=== PATIENT | female | born 1985 | race Hispanic/Latino ===

== ENCOUNTER 2018-09-26 21:48 | Emergency (ER) | payer OTHER ==
[~2018-09-26 21:48] MED LIST: DOCU-272 PO; PNV1TABL17 PO
[2018-09-26 22:20] LABS: BASOPHILS % (AUTO) 1.1 % (0.0-5.0); HEMATOCRIT 33.9 % (36-48); LYMPHOCYTES % (AUTO) 46.5 % (21.0-51.0); MEAN CORPUSCULAR HEMOGLOBIN 29.5 pg (27.0-33.0); MEAN CORPUSCULAR HGB CONC 33.5 g/dL (32.0-36.0); MEAN CORPUSCULAR VOLUME 88.1 fL (79-99); MONOCYTES % (AUTO) 6.6 % (3.0-13.0); NEUTROPHILS % (AUTO) 44.8 % (40.0-77.0); PLATELET COUNT (AUTO) 261 K/uL (130-400); RED BLOOD CELL COUNT(AUTO) 3.85 MIL/uL (4.00-5.50); RED CELL DISTRIBUTION WIDTH 13.4 % (11.0-15.5); WHITE BLOOD COUNT (AUTO) 7.9 K/uL (4.8-10.8)
[2018-09-26 22:23] LABS: APPEARANCE,URINE Clear (CLEAR); BILIRUBIN,URINE Negative (NEGATIVE); COLOR,URINE Yellow (YELLOW); GLUCOSE, URINE (UA) Negative (NEGATIVE); KETONES,URINE Negative (NEGATIVE); LEUKOCYTE ESTERASE ,URINE Small (NEGATIVE); NITRATE,URINE Negative (NEGATIVE); OCCULT BLOOD,URINE Large (NEGATIVE); PH,URINE 6.5 (5.0-8.0); PROTEIN,URINE Negative (NEGATIVE)
[2018-09-26 22:28] LABS: BACTERIA,URINE Few /HPF (None Seen); MUCUS,URINE Rare LPF (None Seen); SQUAMOUS EPITHELIAL CELL,UR Few /HPF (0-2)
[2018-09-26 22:48] LABS: POTASSIUM 3.9 mmol/L (3.5-5.1)
== END 2018-09-26 23:58 | disposition home or self-care (01) ==
LOC: EDH 21:48
DX: O72.1 Other immediate postpartum hemorrhage (principal); Z88.6 Allergy status to analgesic agent; Z88.8 Allergy status to other drugs, medicaments and biological substances; Z98.890 Other specified postprocedural states
CPT/HCPCS: 36415; 76856; 80048; 81001; 82948; 85025

== ENCOUNTER → 2020-03-05 | Outpatient (CLI) | payer OTHER | END | disposition home or self-care (01) | LOC: LAB 12:25 | PROVIDERS: ATTEND Internal Medicine Cardiovascular Disease | DX: U07.1 COVID-19 (principal) | CPT/HCPCS: C9803; U0003 ==